=== PATIENT | female | born 1980 | race Caucasian/White ===

== ENCOUNTER 2017-11-06 01:30 | Emergency (ER) | payer SELFPAY ==
[2017-11-06 02:15] LABS: ABSOLUTE EOSINOPHILS # (AUTO) 0.1 10^3/uL (0.0-0.6); ABSOLUTE LYMPHOCYTES (AUTO) 2.2 10^3/uL (0.5-4.7); ABSOLUTE MONOCYTES (AUTO) 0.8 10^3/uL (0.1-1.4); ABSOLUTE NEUT (AUTO) 15.9 10^3/uL (1.7-8.2); BASOPHILS % (AUTO) 0.1 % (0-2); EOSINOPHILS % (AUTO) 0.4 % (0-6); HEMATOCRIT 35.6 % (36.0-47.0); LYMPHOCYTES % (AUTO) 11.6 % (13-45); MEAN CORPUSCULAR HEMOGLOBIN 30.4 pg (27.0-33.4); MEAN CORPUSCULAR HGB CONC 33.6 g/dL (32.0-36.0); MEAN CORPUSCULAR VOLUME 91 fl (80-97); MONOCYTES % (AUTO) 4.3 % (3-13); PLATELET COUNT 435 10^3/uL (150-450); RED BLOOD COUNT 3.94 10^6/uL (3.72-5.28); RED CELL DISTRIBUTION WIDTH 17.7 % (11.5-14.0); SEGMENTED NEUTROPHILS % (AUTO) 83.6 % (42-78); TOTAL CELLS COUNTED % (AUTO) 100 %; WHITE BLOOD COUNT 19.1 10^3/uL (4.0-10.5)
[2017-11-06 02:20] LABS: APPEARANCE,URINE CLOUDY; BILIRUBIN,URINE NEGATIVE (NEGATIVE); CALCIUM OXALATE CRYSTALS,URINE TOO NUMEROUS TO CNT /HPF; COLOR,URINE YELLOW; GLUCOSE, URINE NEGATIVE (NEGATIVE); KETONES,URINE NEGATIVE (NEGATIVE); LEUKOCYTE ESTERASE,URINE LARGE (NEGATIVE); NITRITE,URINE NEGATIVE (NEGATIVE); PROTEIN,URINE 30 mg/dL (NEGATIVE)
[2017-11-06] MEDS ORDERED: ONDANSETRON HCL INJ/PF 4 MG/2 ML SDV IV ONE (02:38)
[2017-11-06] MEDS ORDERED: NORMAL SALINE 1000 ML 1,000 ML IV ONE (02:38)
[2017-11-06] MEDS ORDERED: MORPHINE SULFATE 10 MG/ML INJ IV PRN (02:38)
[2017-11-06] MEDS ORDERED: KETOROLAC TROMETHAMINE INJ/PF 30 MG/1 ML SDV IV ONE (02:38)
[2017-11-06 02:54] LABS: ALANINE AMINOTRANSFERASE 21 U/L (9-52); ALBUMIN 3.3 g/dL (3.5-5.0); ALKALINE PHOSPHATASE 70 U/L (38-126); ANION GAP 10 (5-19); ASPARTATE AMINO TRANSFERASE 9 U/L (14-36); BILIRUBIN,DIRECT 0.2 mg/dL (0.0-0.4); BILIRUBIN,TOTAL 0.6 mg/dL (0.2-1.3); BLOOD UREA NITROGEN 12 mg/dL (7-20); CALCIUM 9.2 mg/dL (8.4-10.2); CARBON DIOXIDE 25 mmol/L (22-30); CHLORIDE 105 mmol/L (98-107); GLUCOSE 106 mg/dL (75-110); LIPASE 34.9 U/L (23-300); POTASSIUM 3.7 mmol/L (3.6-5.0); SODIUM 140.2 mmol/L (137-145); TOTAL PROTEIN 6.3 g/dL (6.3-8.2)
--- NOTE | 2017-11-06 03:10 | RADIOLOGY REPORT (SQ) ---
EXAM DESCRIPTION: CT ABDOMEN PELVIS WITHOUT IV CONTRAST COMPLETED DATE/TME: 11/06/2017 02:37 CLINICAL HISTORY: Right lower quadrant pain. COMPARISON: None Available. TECHNIQUE: CT of the abdomen and pelvis without IV contrast. Evaluation of the solid organs and vasculature is suboptimal due to lack of IV contrast. DLP: 436.76 mGy-cm FINDINGS: Lung Bases: The visualized lung bases are clear. Bones: No destructive bone lesions identified. Abdomen: Liver: The liver has normal size and density. Gallbladder: Prior cholecystectomy. Spleen, Pancreas, and Adrenal Glands: The spleen, pancreas, and adrenal glands are unremarkable. Kidneys: The kidneys have normal size and contour without evidence of hydronephrosis. No obstructing ureteral calculi. Vasculature: The aorta and IVC have normal caliber and position. Stomach: Large hiatal hernia. Other: No free intraperitoneal air. No free fluid or lymphadenopathy. Pelvis: Bladder: Urinary bladder is unremarkable. Bowel: No dilated loops of large or small bowel. Appendix: Normal appendix. Pelvis: There is a 3.3 x 3.6 cm probably benign right ovarian cyst. IUD present. IMPRESSION: 1. No acute inflammatory or obstructive process identified. 2. Large hiatal hernia. 3. There is a 3.6 cm probably benign right ovarian cyst. Follow-up ultrasound in 6-12 weeks recommended. This exam was performed according to our departmental dose-optimization program, which includes automated exposure control, adjustment of the mA and/or kV according to patient size and/or use of iterative reconstruction technique.
--- NOTE | 2017-11-06 03:54 | RADIOLOGY REPORT (SQ) ---
EXAM DESCRIPTION: US TRANSVAGINAL COMPLETED DATE/TME: 11/06/2017 03:12 CLINICAL HISTORY: 37 years, Female, pelvic pain. LMP 10/06/2017 COMPARISON: None. TECHNIQUE: Complete pelvic ultrasound with transvaginal imaging. FINDINGS: The uterus measures 8.6 x 6.0 x 5.2 cm. Endometrial thickness of 0.8 cm. IUD in appropriate location. No myometrial abnormalities. No free pelvic fluid. No large adnexal masses. The right ovary measures 4.7 x 4.8 x 3.7 cm. Simple appearing right ovarian cyst measuring 4.4 x 4.2 x 3.3 cm. The left ovary measures 3.1 x 2.9 x 2.6 cm. No abnormalities identified in the left ovary. Limited color and spectral Doppler imaging demonstrates flow within the ovaries bilaterally. IMPRESSION: 1. There is a 4.8 cm simple right ovarian cyst. This is almost certainly benign. No follow-up imaging recommended. 2011 [employer]- All Rights Reserved
[2017-11-06] MEDS ORDERED: CEFTRIAXONE INJ 1000 MG VIAL IV ONE (03:56)
--- NOTE | 2017-11-06 04:06 | ER Document Report ---
ED General - General Chief Complaint: Abdominal Pain Stated Complaint: FLANK PAIN Time Seen by Provider: 11/06/17 01:52 Notes: Patient is a 37-year-old female without chronic medical problems, prior surgical history of a cholecystectomy in the remote past who presents with 2 days of progressively worsening lower abdominal pain and right flank pain. The patient states that the pain started 2 days ago after having sexual intercourse. She states like something "popped" in her right lower abdomen and the pain has been ongoing since that time. She describes it as a severe, throbbing, stabbing pain to the lower abdomen and right flank. Nothing improves the pain. Touching the area worsens the pain. She denies any history of similar symptoms in the past. She notes that she has been nauseated but denies any vomiting. No fever or constitutional symptoms. She has not seen her general doctor regarding today's concerns. He does note intermittent vaginal bleeding as well as dysuria. TRAVEL OUTSIDE OF THE [place] IN LAST 30 DAYS: No - Related Data Allergies/Adverse Reactions: acetaminophen [From Vicodin] Allergy (Mild, Verified 11/06/17 01:32) hydrocodone [From Vicodin] Allergy (Mild, Verified 11/06/17 01:32) Past Medical History - General Information source: Patient - Social History Smoking Status: Current Every Day Smoker Frequency of alcohol use: Occasional Drug Abuse: None Lives with: Spouse/Significant other Family History: Reviewed & Not Pertinent Patient has suicidal ideation: No Patient has homicidal ideation: No Renal/ Medical History: Denies: Hx Peritoneal Dialysis Past Surgical History: Reports: Hx Cholecystectomy Review of Systems - Review of Systems Notes: Constitutional: Negative for fever. HENT: Negative for sore throat. Eyes: Negative for visual changes. Cardiovascular: Negative for chest pain. Respiratory: Negative for shortness of breath. Gastrointestinal: Positive for abdominal pain and flank pain. Genitourinary: Positive for intermittent vaginal bleeding Musculoskeletal: Negative for back pain. Skin: Negative for rash. Neurological: Negative for headaches, weakness or numbness. 10 point ROS negative except as marked above and in HPI. Physical Exam - Vital signs Vitals: Temp Pulse Resp BP Pulse Ox 98.5 F 100 18 122/73 99 11/06/17 01:35 11/06/17 01:35 11/06/17 01:35 11/06/17 01:35 11/06/17 01:35 Interpretation: Normal Notes: PHYSICAL EXAMINATION: GENERAL: Appears moderately uncomfortable but in no acute distress HEAD: Atraumatic, normocephalic. EYES: Pupils equal round and reactive to light, extraocular movements intact, sclera anicteric, conjunctiva are normal. ENT: nares patent, oropharynx clear without exudates. Mildly dry mucous membranes. NECK: Normal range of motion, supple without lymphadenopathy LUNGS: Breath sounds clear to auscultation bilaterally and equal. No wheezes rales or rhonchi. HEART: Regular rate and rhythm without murmurs ABDOMEN: Soft, tenderness to the right adnexa suprapubic regions. Right CVA tenderness. Normoactive bowel sounds. No guarding, no rebound. No masses appreciated. EXTREMITIES: Normal range of motion, no pitting or edema. No cyanosis. NEUROLOGICAL: No focal neurological deficits. Moves all extremities spontaneously and on command. PSYCH: Moderately anxious. SKIN: Warm, Dry, normal turgor, no rashes or lesions noted. Course - Re-evaluation Re-evalutation: 11/06/17 04:06 Patient presents with 2 days of progressively worsening right adnexal, suprapubic and right flank pain that has gotten progressively worse. The patient appears to be in obvious discomfort at time of my initial assessment. Initial vitals are within normal limits. Abdominal exam is notable for tenderness over the right adnexa, suprapubic region as well as bilateral CVA tenderness. No upper abdominal discomfort. Labs are notable for a leukocytosis , urinalysis consistent with cystitis versus pyelonephritis. Concern for possible nephrolithiasis given calcium oxalate crystals in urine as well as the degree of the patient's pain particularly to the right flank. CT scan of the abdomen pelvis without contrast shows no evidence of nephrolithiasis, normal appendix, but does show a large right ovarian cyst. Due to the patient's degree of pain there was a potential concern for ovarian torsion. The patient was therefore sent for transvaginal ultrasound and appropriate blood flow was visualized to both ovaries. Patient did have improvement of her discomfort here after administration of morphine and Toradol. She was able to tolerate oral intake without difficulty. Repeat abdominal examination shows ongoing mild discomfort to the right adnexa but is otherwise benign. At this point based on the workup today I suspect that the patient is having a large amount of discomfort related to the large right ovarian cyst as well as a urinary tract infection. I do not clinically suspect bowel perforation, mesenteric ischemia, acute appendicitis, pancreatitis, tubo-ovarian abscess, or pelvic inflammatory disease based on her imaging studies, history and exam. I have emphasized with the patient the importance of close outpatient follow-up, the need to return to the emergency department immediately if she develops fever, worsening pain, persistent vomiting, or has failure of her symptoms to resolve she states understanding of these discharge instructions as well as the need to return immediately if she is having deterioration of her condition. - Vital Signs Vital signs: Temp Pulse Resp BP Pulse Ox 98.5 F 100 18 122/73 99 11/06/17 01:35 11/06/17 01:35 11/06/17 01:35 11/06/17 01:35 11/06/17 01:35 - Laboratory Result Diagrams: 11/06/17 02:00 11/06/17 02:00 Laboratory results interpreted by me: 11/06/17 11/06/17 11/06/17 02:00 02:00 02:00 WBC 19.1 H Hct 35.6 L RDW 17.7 H Seg Neutrophils % 83.6 H Lymphocytes % 11.6 L Absolute Neutrophils 15.9 H AST 9 L Albumin 3.3 L Urine Protein 30 H Urine Blood MODERATE H Urine Urobilinogen 4.0 H Ur Leukocyte Esterase LARGE H - Diagnostic Test Radiology reviewed: Reports reviewed Discharge - Discharge Clinical Impression: Ovarian cyst, right, Lower abdominal pain, Right flank pain Urinary tract infection Qualifiers: Urinary tract infection type: site unspecified Hematuria presence: with hematuria Qualified Code(s): N39.0 - Urinary tract infection, site not specified ; R31.9 - Hematuria, unspecified; R31.9 - Hematuria, unspecified Condition: Good Disposition: HOME, SELF-CARE Additional Instructions: Your pain today is likely related to a large right ovarian cyst. This is seen on both the CT scan and ultrasound that was performed. You do not have any evidence of a kidney stone on the CT scan. Your urine shows findings consistent with a urinary tract infection. Please take all the antibiotics as directed even if your symptoms have improved. Please follow-up with your primary care doctor within the next 24-48 hours. Return to emergency room if you develop fever >101F, persistent vomiting, become lethargic, have severe pain in your sides, or any other symptoms that are concerning to you. For your pain: Take ibuprofen 600 mg and acetaminophen 1000 mg every 6 hours together as needed for pain. If this does not control your pain you may take 15 mg of oral morphine every 4 hours as needed. Please be very careful about using the oral morphine and only use this for severe pain. Prescriptions: Morphine Sulfate [Morphine Ir 15 mg Tablet] 15 mg PO Q6HP PRN #6 tablet PRN Reason: Cephalexin Monohydrate [Keflex 500 mg Capsule] 500 mg PO Q6H 7 Days capsule
[2017-11-06 05:14] VITALS: BP 135/75
== END 2017-11-06 05:14 | disposition home or self-care (01) ==
LOC: ER 01:30
DX: N39.0 Urinary tract infection, site not specified (principal); N83.201 Unspecified ovarian cyst, right side; R10.30 Lower abdominal pain, unspecified; R31.9 Hematuria, unspecified; R10.9 Unspecified abdominal pain; F17.200 Nicotine dependence, unspecified, uncomplicated; Z90.49 Acquired absence of other specified parts of digestive tract; Z88.6 Allergy status to analgesic agent
CPT/HCPCS: 99284; 96361; 96375; 96365; 36415; 87086; 83690; 85025; 81025; 87088; 80053; 81001; 87186; 76830; 93976; 74176; J1885; J0696; J2405; J7030

== ENCOUNTER 2018-01-25 16:03 | Emergency (ER) | payer SELFPAY ==
[2018-01-25] MEDS ORDERED: CLINDAMYCIN PHOSPHATE INJ 300 MG/2 ML SDV IM ONE (17:44)
--- NOTE | 2018-01-25 19:11 | ER Document Report ---
ED Skin Rash/Insect Bite/Abscs - General Chief Complaint: Insect Bite Stated Complaint: POSSIBLE BITE ON FOREARM Time Seen by Provider: 01/25/18 17:19 Mode of Arrival: Ambulatory Information source: Patient TRAVEL OUTSIDE OF THE [place] IN LAST 30 DAYS: No - HPI Patient complains to provider of: Skin rash/lesion, Spider bite Onset: Other - 2 days ago Onset/Duration: Worse Quality of pain: Burning, Sharp, Throbbing Severity: Moderate Pain Level: 3 Skin Character: Abscess, Tenderness Skin Temperature: Warm Quality of rash: Itchy, Painful Identify cause: No Exacerbated by: Denies Relieved by: Denies Similar symptoms previously: No Recently seen / treated by doctor: No - Related Data Allergies/Adverse Reactions: acetaminophen [From Vicodin] Allergy (Mild, Verified 11/06/17 01:32) hydrocodone [From Vicodin] Allergy (Mild, Verified 11/06/17 01:32) Past Medical History - General Information source: Patient - Social History Smoking Status: Current Every Day Smoker Cigarette use (# per day): Yes Chew tobacco use (# tins/day): No Smoking Education Provided: Yes Frequency of alcohol use: Occasional Drug Abuse: None Family History: Reviewed & Not Pertinent Patient has suicidal ideation: No Patient has homicidal ideation: No Renal/ Medical History: Denies: Hx Peritoneal Dialysis Past Surgical History: Reports: Hx Abdominal Surgery - hernia, Hx Cholecystectomy Review of Systems - Review of Systems Constitutional: No symptoms reported EENT: No symptoms reported Cardiovascular: No symptoms reported Respiratory: No symptoms reported Gastrointestinal: No symptoms reported Genitourinary: No symptoms reported Female Genitourinary: No symptoms reported Musculoskeletal: No symptoms reported Skin: See HPI, Other - Cellulitis Hematologic/Lymphatic: No symptoms reported Neurological/Psychological: No symptoms reported -: Yes All other systems reviewed and negative Physical Exam - Vital signs Vitals: Temp Pulse Resp BP Pulse Ox 98.0 F 88 16 140/89 H 98 01/25/18 16:09 01/25/18 16:09 01/25/18 16:09 01/25/18 16:09 01/25/18 16:09 Interpretation: Hypertensive - Notes Notes: 1 PHYSICAL EXAMINATION: GENERAL: Well-appearing, well-nourished and in no acute distress. HEAD: Atraumatic, normocephalic. EYES: Pupils equal round and reactive to light, extraocular movements intact, conjunctiva are normal. ENT: Nares patent, oropharynx clear without exudates. Moist mucous membranes. NECK: Normal range of motion, supple without lymphadenopathy LUNGS: Breath sounds clear to auscultation bilaterally and equal. No wheezes rales or rhonchi. HEART: Regular rate and rhythm without murmurs ABDOMEN: Soft, nontender, nondistended abdomen. No guarding, no rebound. No masses appreciated. Female : deferred Musculoskeletal: Patient has a area on her right arm that encompasses her and q. and below and above. The original site of the events is just below the antecubital on the forearm. It is an area of 13 cm x 13 cm. It is moderately warm there is no fluctuance there is no induration at this time it is just warm hot skin that really appears infected. The originating site is approximately 3- 4 mL's wide by about 3-4 mL as long. It is blackish in nature and does appear somewhat be necrotic in that area. There is no drainage from the site at this time. Patient has full use of her arm although it is uncomfortable she has good vascular exam with good cap refill in the nailbeds of the fingers of the right hand. She also has a good brachial pulse. At this time there is no area sufficient enough to call an abscess or for an I&D. NEUROLOGICAL: Normal speech, normal gait. Normal sensory, motor exams PSYCH: Normal mood, normal affect. SKIN: Warm, Dry, normal turgor, no rashes or lesions noted. Course - Re-evaluation Re-evalutation: 01/25/18 21:17 I informed patient that was putting her on 2 antibiotics and Diflucan. I did give her some pain medication because of the discomfort. At this point time I have informed her she is to use warm moist compresses. I have informed her to come back in 48 hours and let us take a look at it. Patient seems to be in agreement with all this. We are uncertain as to the cause of this but it may have been a spider. - Vital Signs Vital signs: Temp Pulse Resp BP Pulse Ox 97.7 F 95 16 145/77 H 99 01/25/18 19:51 01/25/18 19:51 01/25/18 19:51 01/25/18 19:51 11/13/18 19:51 Discharge - Discharge Clinical Impression: Cellulitis Qualifiers: Site of cellulitis: extremity Site of cellulitis of extremity: upper extremity Laterality: right Qualified Code(s): L03.113 - Cellulitis of right upper limb Condition: Good Disposition: HOME, SELF-CARE Instructions: Cellulitis ([facility]) Additional Instructions: As we discussed go home use warm moist compresses 2-3 times a day. This is a rag just as warm as you can stand up from the sink and not in a microwave or in a boiling pot. Take all the antibiotics as directed. I am also writing you for a Diflucan tablet this. You from getting a yeast infection. I am placing you on 2 antibiotics both Bactrim which is a sulfa drugs and cephalexin which is in a different class of drug. Both her antibiotics and because her strong antibiotics women sometimes get a yeast infection that is why we given you the Diflucan pill. Should you have any concerns that this is expanding or not healing appropriately return to ER for a recheck. I would like you to come back in about 48 hours just to be on the safe side to make sure that it is responding to the treatments as we have just expected it to. And again should it be worse come back sooner. Prescriptions: Cephalexin Monohydrate [Keflex 500 mg Capsule] 500 mg PO Q6H 7 Days #28 capsule Fluconazole [Diflucan] 150 mg PO ONCE PRN #1 tablet PRN Reason: Ibuprofen [Ibu] 800 mg PO TID #30 tablet Sulfamethoxazole/Trimethoprim [Bactrim Ds Tablet] 1 each PO BID 10 Days #20 tablet Forms: Elevated Blood Pressure, Smoking Cessation Education Referrals: [facility] [NO LOCAL MD] - Follow up as needed
[2018-01-25 19:52] VITALS: BP 145/77
== END 2018-01-25 19:52 | disposition home or self-care (01) ==
LOC: ER 16:03
DX: L03.113 Cellulitis of right upper limb (principal); F17.210 Nicotine dependence, cigarettes, uncomplicated; Z88.6 Allergy status to analgesic agent; Z88.5 Allergy status to narcotic agent
CPT/HCPCS: 99283; J3490

== ENCOUNTER 2018-01-26 23:17 | Emergency (ER) | payer SELFPAY ==
[2018-01-27] MEDS ORDERED: LIDOCAINE 1% INJ-PF (10 MG/ML) 30 ML SDV INJ ONE ×2 (00:50→00:57)
[2018-01-27] MEDS ORDERED: OXYCODONE HCL IR 5 MG TABLET PO ONE ×2 (00:51→01:59)
--- NOTE | 2018-01-27 00:51 | ER Document Report ---
Doctor's Note Notes: I personally and independently obtained patient history and examined the patient in conjunction with the APC and agree with the assessment, treatment plan and disposition of the patient as recorded by the APC, and have reviewed the APC's note. HISTORY OF PRESENT ILLNESS: Patient is a 37-year-old female that presents to the emergency department for chief complaint of right arm swelling, and redness, patient was seen in the emergency department yesterday, advised if her symptoms worsen to return to the emergency department, she was given prescriptions, but did not have them filled for antibiotics. ROS: Constitutional: Negative for fever. Cardiovascular: Negative for chest pain. Respiratory: Negative for shortness of breath. Gastrointestinal: Negative for vomiting or abdominal pain Musculoskeletal: Negative for arm, leg or back pain Skin: Positive for abscess Neurological: Negative for weakness or numbness. Other than noted above, the 12 point review of systems was reviewed with the patient and were negative, all pertinent findings are included in the HPI. PHYSICAL EXAMINATION: Vital signs reviewed, nursing noted reviewed. GENERAL: Well-appearing, well-nourished and appears uncomfortable HEAD: Atraumatic, normocephalic. EYES: Eyes appear normal, conjunctiva are normal. ENT: nares patent, oropharynx clear without exudates. Moist mucous membranes. NECK: Normal range of motion, supple without lymphadenopathy LUNGS: Breath sounds clear to auscultation bilaterally and equal. No wheezes rales or rhonchi. HEART: Regular rate and rhythm without murmurs ABDOMEN: Soft, nontender, normoactive bowel sounds. No rebound, guarding, or rigidity. No masses appreciated. EXTREMITIES: Right arm, is erythematous, there is an eschar just distal to the elbow on the volar surface, with surrounding erythema extending medially and laterally and distally, no lymphadenopathy in the axilla, the rest the patient' s extremity exam is unremarkable NEUROLOGICAL: No focal neurological deficits. Moves all extremities spontaneously Motor and sensory grossly intact on exam. PSYCH: Normal mood, normal affect. SKIN: Warm, Dry, normal turgor, no rashes or lesions noted on exposed MEDICAL DECISION MAKING: Patient seen and examined, agree with APC plan, we did perform bedside ultrasound, demonstrated a pocket of fluid, with tunneling, which I felt would need incision and drainage, which was performed, with good output, patient tolerated well, packing placed, she is given return precautions, to have a wound check, in 2-3 days, patient was agreeable. Please review detail APC documentation. *Note is created using voice recognition software and may contain spelling, syntax or grammatical errors.
[2018-01-27] MEDS ORDERED: CEFTRIAXONE INJ 1000 MG VIAL IM ONE (00:57)
[2018-01-27] MEDS ORDERED: SULFAMETHOXAZOLE/TRIMETHOPRIM 800-160 MG TABLET PO ONE (00:57)
--- NOTE | 2018-01-27 00:57 | ER Document Report ---
Addendum entered and electronically signed by CRISTHIAN RAMÍREZ PA-C 01/27/18 01:34 : Discharge - Discharge Clinical Impression: Cellulitis and abscess of upper arm and forearm Condition: Stable Disposition: HOME, SELF-CARE Instructions: Abscess ([facility]), Cephalexin ([facility]), Post Incision and Drainage, Trimethoprim-Sulfa ([facility]) Additional Instructions: Fill your Keflex and Bactrim tomorrow morning* Do not shower or bathe for 24 hours. After 24 hours she may shower but no submersion of the wound under water. Keep the original dressing on the wound for 24 hours unless the drainage soaks through. Change the dressing daily thereafter and use a small amount of triple antibiotic ointment over the open wound. Return to the ED and/or your PCM in 2-3 days for recheck and continue direction for wound packing. Monitor for any signs of worsening pain or redness , streaks, and/or fever. Return to the ED if noticing any of the above symptoms or as needed. Take medications as directed. Prescriptions: Morphine Sulfate [Morphine Ir 15 Mg Tablet] 15 mg PO TID #12 tablet Forms: Elevated Blood Pressure Referrals: MARICRUZ MARTINEZ MD [ACTIVE STAFF] - Follow up as needed Original Note: ED General - General TRAVEL OUTSIDE OF THE [place] IN LAST 30 DAYS: No <CRISTHIAN RAMÍREZ - Last Filed: 01/27/18 01:34> <MISAEL OLSEN - Last Filed: 01/27/18 04:06> - General Chief Complaint: Abscess Stated Complaint: POSSIBLE SPIDER BITE Time Seen by Provider: 01/27/18 00:43 - HPI Notes: Patient is a 37-year-old female with a history of asthma who presents to the ED complaining of worsening swelling, pain, and redness to her right anterior forearm status post possible insect bite a couple days ago. Patient states that she was evaluated yesterday and was sent home on Keflex and Bactrim, but could not fill the medications due to cost. Patient states that she did not go to [facility] for the medications which is why it was more expensive. 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 Patient states that the area of skin was marked and the redness has surpassed the border. She is otherwise still eating and drinking without difficulty. She is urinating normally and having normal bowel movements. Denies any headache, fever, neck pain, URI, sore throat, chest pain, palpitations, syncope, cough, shortness of breath, wheeze, dyspnea, abdominal pain, nausea/vomiting/diarrhea, urinary retention, dysuria, hematuria. (CRISTHIAN RAMÍREZ) - Related Data Allergies/Adverse Reactions: acetaminophen [From Vicodin] Allergy (Mild, Verified 11/06/17 01:32) hydrocodone [From Vicodin] Allergy (Mild, Verified 11/06/17 01:32) Past Medical History - Social History Smoking Status: Unknown if Ever Smoked Family History: Reviewed & Not Pertinent Renal/ Medical History: Denies: Hx Peritoneal Dialysis Past Surgical History: Reports: Hx Abdominal Surgery - hernia, Hx Cholecystectomy <CRISTHIAN RAMÍREZ - Last Filed: 01/27/18 01:34> Review of Systems - Review of Systems -: Yes All other systems reviewed and negative <CRISTHIAN RAMÍREZ - Last Filed: 01/27/18 01:34> Physical Exam <CRISTHIAN RAMÍREZ - Last Filed: 01/27/18 01:34> <MISAEL OLSEN - Last Filed: 01/27/18 04:06> - Vital signs Vitals: Temp Pulse Resp BP Pulse Ox 98.5 F 101 H 18 144/86 H 99 01/26/18 23:17 01/26/18 23:17 01/26/18 23:17 01/26/18 23:17 01/26/18 23:17 - Notes Notes: PHYSICAL EXAMINATION: GENERAL: Well-appearing, well-nourished and in no acute distress. LUNGS: Breath sounds clear to auscultation bilaterally and equal. No wheezes rales or rhonchi. HEART: Regular rate and rhythm without murmurs, rubs, gallops. Musculoskeletal: Rt arm: FROM to passive/active. Strength 5+/5. N/v intact distal. Extremities: No cyanosis, clubbing, or edema b/l. Peripheral pulses 2+. Capillary refill less than 3 seconds. NEUROLOGICAL: Normal speech, normal gait. Normal sensory, motor exams PSYCH: Normal mood, normal affect. SKIN: Rt forearm: there is a large area surpassing the previously marked border of erythema and warmth. There is mild induration and fluctuance noted directly beneath the scabbed/mildly necrotic area of the forearm. + tenderness associated. + small fluid pocket noted on US performed by Dr. Olsen. (CRISTHIAN RAMÍREZ) Course <CRISTHIAN RAMÍREZ - Last Filed: 01/27/18 01:34> <MISAEL OLSEN - Last Filed: 01/27/18 04:06> - Re-evaluation Re-evalutation: 01/27/18 00:55 US shows abscess although small. We will perform I&D. Rocephin 1g IM and bactrim DS PO will be given. We will hold off on further labs at this time as it appears to be abscess with cellulitis vs associated lymphangitis. 01/27/18 01:30 Patient is an afebrile, well-hydrated, 37-year-old female who presents to the ED with an abscess and cellulitis to her right anterior forearm. Vitals are acceptable without any significant tachycardia, tachypnea, or hypoxia. PE is otherwise unremarkable. Incision and drainage was performed successfully without any complications. Wound culture was obtained. Packing was placed and wound dressing applied. Wound instructions reviewed. First dose of Bactrim given p.o. today as well as Rocephin 1 g IM. No further labs or imaging warranted at this time. Patient is aware her condition can change/worsen and if so she needs to return immediately. I will send her home with a prescription for some pain medicine. She already has prescriptions for Bactrim and Keflex that she is going to fill tomorrow. I did stress the importance of filling her prescription tomorrow. Conservative measures otherwise for symptoms. Recheck with your PCM and/or return to the emergency department in 2- 3 days for wound check and further evaluation. Consider consult with the surgeon as well. Return to the ED with any worsening/concerning symptoms otherwise as reviewed in discharge. Patient is in agreement. (CRISTHIAN RAMÍREZ) - Vital Signs Vital signs: Temp Pulse Resp BP Pulse Ox 98.7 F 89 20 136/78 H 96 01/27/18 02:31 01/27/18 02:31 01/27/18 02:31 01/27/18 02:31 01/27/18 02:31 Procedures - Incision and Drainage Right Arm Time completed: 01:25 Type: Simple Anesthetic type: 1% Lidocaine mL's of anesthetic: 5 Blade size: 11 I&D procedure: Iodoform packing placed, Other - chlorhexadine/saline Incision Method: Incision made by scalpel Amount/type of drainage: abundant purulent <CRISTHIAN RAMÍREZ - Last Filed: 01/27/18 01:34> - Incision and Drainage Right Arm Type: Complex <MISAEL OLSEN - Last Filed: 01/27/18 04:06> Discharge <CRISTHIAN RAMÍREZ - Last Filed: 01/27/18 01:34> <MISAEL OLSEN - Last Filed: 01/27/18 04:06> - Discharge Clinical Impression: Cellulitis and abscess of upper arm and forearm Condition: Stable Disposition: HOME, SELF-CARE Instructions: Abscess ([facility]), Cephalexin ([facility]), Post Incision and Drainage, Trimethoprim-Sulfa ([facility]) Additional Instructions: Fill your Keflex and Bactrim tomorrow morning* Do not shower or bathe for 24 hours. After 24 hours she may shower but no submersion of the wound under water. Keep the original dressing on the wound for 24 hours unless the drainage soaks through. Change the dressing daily thereafter and use a small amount of triple antibiotic ointment over the open wound. Return to the ED and/or your PCM in 2-3 days for recheck and continue direction for wound packing. Monitor for any signs of worsening pain or redness , streaks, and/or fever. Return to the ED if noticing any of the above symptoms or as needed. Take medications as directed. Prescriptions: Morphine Sulfate [Morphine Ir 15 Mg Tablet] 15 mg PO TID #12 tablet Forms: Elevated Blood Pressure Referrals: MARICRUZ MARTINEZ MD [ACTIVE STAFF] - Follow up as needed
[2018-01-27 02:32] VITALS: BP 136/78
== END 2018-01-27 02:34 | disposition home or self-care (01) ==
LOC: ER 23:17
DX: L02.413 Cutaneous abscess of right upper limb (principal); L03.113 Cellulitis of right upper limb; T36.1X6A Underdosing of cephalosporins and other beta-lactam antibiotics, initial encounter; T37.0X6A Underdosing of sulfonamides, initial encounter; Z91.120 Patient's intentional underdosing of medication regimen due to financial hardship; Z91.14 Patient's other noncompliance with medication regimen; Z88.6 Allergy status to analgesic agent; Z88.5 Allergy status to narcotic agent
CPT/HCPCS: 99283; 96372; 87070; 87205; 87075; 87077; 87186; 10060; J3490; J0696

== ENCOUNTER 2018-07-29 15:24 | Emergency (ER) | payer OTHER ==
[2018-07-29] MEDS ORDERED: IBUPROFEN 800 MG TABLET PO ONE (15:46)
[2018-07-29] MEDS ORDERED: CLINDAMYCIN HCL 150 MG CAPSULE PO ONE (15:46)
--- NOTE | 2018-07-29 15:46 | ER Document Report ---
ED Skin Rash/Insect Bite/Abscs - General Chief Complaint: Skin Problem Stated Complaint: POSSIBLE BUG BITE Time Seen by Provider: 07/29/18 15:35 Notes: 37-year-old female who is an inmate was sent for evaluation of cellulitis/insect bite of her wrist. She denies any fever or chills. The patient has been on Bactrim and minocycline. They felt the redness was getting worse and sent the patient in the patient stated it really does not bother her that much. She denies anything else she has had abscesses in the past denies chest pain or short of breath denies abdominal pain. TRAVEL OUTSIDE OF THE [place] IN LAST 30 DAYS: No - Related Data Allergies/Adverse Reactions: acetaminophen [From Vicodin] Allergy (Mild, Verified 07/29/18 15:36) hydrocodone [From Vicodin] Allergy (Mild, Verified 07/29/18 15:36) Past Medical History - Social History Smoking Status: Former Smoker Chew tobacco use (# tins/day): No Frequency of alcohol use: None Drug Abuse: None Family History: Reviewed & Not Pertinent Patient has suicidal ideation: No Patient has homicidal ideation: No Renal/ Medical History: Denies: Hx Peritoneal Dialysis Past Surgical History: Reports: Hx Abdominal Surgery - hernia, Hx Cholecystectomy Review of Systems - Review of Systems Constitutional: denies: Chills, Fever Skin: Other - Insect bite/area on the dorsum of the left wrist with some mild redness around it no greater than 2-1/2 cm in diameter -: Yes All other systems reviewed and negative Physical Exam - Vital signs Vitals: Temp Pulse Resp BP Pulse Ox 97.4 F 76 18 150/87 H 96 07/29/18 15:36 07/29/18 15:36 07/29/18 15:36 07/29/18 15:36 07/29/18 15:36 - Notes Notes: GENERAL_APPEARANCE: well_nourished, alert, cooperative, no_acute_distress, no_obvious_discomfort. VITALS: reviewed, see vital signs table. HEAD: no_swelling\tenderness on the head. EYES: conjunctiva_clear. NOSE: no_nasal_discharge. MOUTH: (-)decreased moisture. EXTREMITIES: Very small area about the size of a dime on the dorsum of the left wrist. There is some redness that extends out about 2-1/2 cm total diameter. There is no fluctuance there is a little bit of induration little less than the size of a dime. SKIN: warm, dry, good_color, no_rash. MENTAL_STATUS: speech_clear, oriented_X_3, normal_affect, responds_appropriately to questions. Course - Re-evaluation Re-evalutation: 07/29/18 15:43 Patient was sent for an area of cellulitis. She is been on Bactrim and minocycline. I tried to squeeze the area and just a little bit a lymph came out no pus. I do not think it needs I&D is pretty small effusion no fluctuance. We will place the patient on clindamycin and Bactroban. We will stop the Bactrim and minocycline. Currently this does not look very worrisome and I do not think he needs any IV antibiotics. The patient will be discharged back to assisted. - Vital Signs Vital signs: Temp Pulse Resp BP Pulse Ox 97.4 F 76 18 150/87 H 96 07/29/18 15:36 07/29/18 15:36 07/29/18 15:36 07/29/18 15:36 07/29/18 15:36 Discharge - Discharge Clinical Impression: Cellulitis of extremity Qualifiers: Site of cellulitis of extremity: upper extremity Laterality: left Qualified Code(s): L03.114 - Cellulitis of left upper limb Disposition: HOME, SELF-CARE Instructions: Cellulitis ([facility]) Additional Instructions: Stop the Bactrim and minocycline. Start clindamycin as prescribed and Bactroban cream. Warm compresses. Prescriptions: Clindamycin HCl [Cleocin 300 mg Capsule] 300 mg PO Q6 #30 cap Mupirocin Calcium [Bactroban 2% Cream 15 gm] 1 applic TP BID #1 tube
[2018-07-29 16:11] VITALS: BP 123/70
== END 2018-07-29 16:13 ==
LOC: ER 15:24
DX: L03.114 Cellulitis of left upper limb (principal); Z90.49 Acquired absence of other specified parts of digestive tract; Z88.6 Allergy status to analgesic agent
CPT/HCPCS: 99283

== ENCOUNTER → 2018-09-08 | Outpatient (CLI) | payer OTHER ==
--- NOTE | 2018-09-08 17:24 | RADIOLOGY REPORT (SQ) ---
EXAM DESCRIPTION: U/S NON-OB PELVIS W/O DOP COMPLETED DATE/TIME: 09/08/2018 4:33 pm REASON FOR STUDY: N83.201 UNSPECIFIED OVARIAN CYST, RIGHT KANWAL N83.201 UNSPECIFIED OVARIAN CYST, RIG HT SIDE COMPARISON: 11/06/2017 TECHNIQUE: Dynamic and static grayscale images acquired of the pelvis via transabdominal approach an d recorded on PACS. Additional selected color Doppler and spectral images recorded. LIMITATIONS: The examination is limited due to overlying bowel gas. FINDINGS: UTERUS: Contour normal. No mass. ENDOMETRIAL STRIPE: IUD is identified within the endometrial cavity. CERVIX: No nabothian cysts. RIGHT OVARY AND DOPPLER: The right ovary is not visualized due to overlying bowel gas. LEFT OVARY AND DOPPLER: Normal size. No worrisome masses. Normal arterial vascular flow without evide nce for torsion. FREE FLUID: None noted. OTHER: No other significant finding. MEASUREMENTS: UTERUS: 7.9 x 5.9 x 4.7 cm ENDOMETRIAL STRIPE: See above RIGHT OVARY: Not visualized LEFT OVARY: 2.0 x 3.4 x 2.2 cm IMPRESSION: 1. The right ovary is not visualized due to overlying bowel gas. 2. IUD within the endometrial cavity. TECHNICAL DOCUMENTATION: JOB ID: [id number] [employer]- All Rights Reserved Rev-07/30 Reading location - IP/workstation name: [email or web address]
== END ==
LOC: RAD 15:33
PROVIDERS: ATTEND Family Medicine
DX: N83.201 Unspecified ovarian cyst, right side (principal)
CPT/HCPCS: 76856

== ENCOUNTER → 2018-09-26 | Outpatient (CLI) | payer OTHER ==
--- NOTE | 2018-09-26 16:19 | RADIOLOGY REPORT (SQ) ---
EXAM DESCRIPTION: U/S NON-OB PELVIS W/O DOP COMPLETED DATE/TIME: 09/26/2018 2:26 pm REASON FOR STUDY: OVARIAN CYST COMPARISON: 09/08/2018 TECHNIQUE: Dynamic and static grayscale images acquired of the pelvis via transabdominal approach an d recorded on PACS. Additional selected color Doppler and spectral images recorded. LIMITATIONS: None. FINDINGS: UTERUS: Contour normal. No mass. ENDOMETRIAL STRIPE: No focal or generalized thickening. IUD present. . CERVIX: No nabothian cysts. RIGHT OVARY AND DOPPLER: Ovary not visualized. LEFT OVARY AND DOPPLER: Normal size. No worrisome masses. Normal arterial vascular flow without evide nce for torsion. FREE FLUID: None noted. OTHER: No other significant finding. MEASUREMENTS: UTERUS: 7.9 x 5 x 4 cm cm ENDOMETRIAL STRIPE: 7 mm RIGHT OVARY: Not visualized. LEFT OVARY: 2.1 x 2.2 x 1.7 cm IMPRESSION: Nonvisualized right ovary. IUD present. TECHNICAL DOCUMENTATION: JOB ID: [id number] [place]-72 2010 [employer]- All Rights Reserved Rev-07/30 Reading location - IP/workstation name: [email or web address]
== END ==
LOC: RAD 13:55
PROVIDERS: ATTEND Family Medicine
DX: N83.209 Unspecified ovarian cyst, unspecified side (principal)
CPT/HCPCS: 76856

== ENCOUNTER → 2018-10-05 | Outpatient (CLI) | payer OTHER ==
--- NOTE | 2018-10-05 16:53 | RADIOLOGY REPORT (SQ) ---
EXAM DESCRIPTION: U/S NON-OB PELVIS TV W/O DOP COMPLETED DATE/TIME: 10/05/2018 4:40 pm REASON FOR STUDY: N83.201 UNSPECIFIED OVARIAN CYST, RIGHT SIDE N83.201 UNSPECIFIED OVARIAN CYST, RI GHT SIDE COMPARISON: 09/26/2018. TECHNIQUE: Dynamic and static grayscale images acquired of the pelvis via transvaginal approach and recorded on PACS. Additional selected color Doppler and spectral images recorded. LIMITATIONS: None. FINDINGS: UTERUS: Contour normal. No mass. ENDOMETRIAL STRIPE: IUD present. No focal or generalized thickening. No masses. CERVIX: No nabothian cysts. RIGHT OVARY AND DOPPLER: Normal size. No worrisome masses. Normal arterial vascular flow without evid ence for torsion. LEFT OVARY AND DOPPLER: Normal size. No worrisome masses. Normal arterial vascular flow without evide nce for torsion. FREE FLUID: None noted. OTHER: No other significant finding. MEASUREMENTS: UTERUS: 4.5 x 5.6 x 8.9 cm. ENDOMETRIAL STRIPE: 5.5 mm. RIGHT OVARY: 1.3 x 1.5 x 1.6 cm. LEFT OVARY: 1.6 x 2.2 x 2.6 cm. IMPRESSION: NORMAL TRANSVAGINAL PELVIC ULTRASOUND. TECHNICAL DOCUMENTATION: JOB ID: [id number] [employer]- All Rights Reserved Rev Reading location - IP/workstation name: [email or web address]
== END ==
LOC: RAD 16:00
PROVIDERS: ATTEND Family Medicine
DX: N83.201 Unspecified ovarian cyst, right side (principal)
CPT/HCPCS: 76830

== ENCOUNTER 2020-01-03 15:00 | Emergency (ER) | payer SELFPAY ==
--- NOTE | 2020-01-03 15:40 | ER Document Report ---
ED Medical Screen (RME) - General Chief Complaint: Lower Abdominal Pain Stated Complaint: LOW ABDOMINAL/PELVIC PAIN Time Seen by Provider: 01/03/20 15:28 TRAVEL OUTSIDE OF THE [place] IN LAST 30 DAYS: No - HPI Notes: 01/03/20 15:38 39-year-old female to the emergency department with complaints of pelvic pain that radiates into her right upper quadrant states been going on for about a month but been getting significantly worse. She states that her last menstrual period was December 06 and she has had several negative tests since her pain started. She states that she has had a little bit of some discharge and odor. She states that she also feels this "vaginal pulling". She states that she has a history of ovarian cyst but she is not sure that this is exactly what is going on. She states that she does have a newer partner and she is concerned for STD. Denies any nausea or vomiting. She denies any chest pain or shortness of breath. Denies any diarrhea. Denies any urinary complaints. She has had a cholecystectomy as well as a hernia repair. I performed a brief medical screening exam on the patient determined that the patient needs further evaluation and management by main side provider. I have placed initial orders to help expedite care. - Related Data Allergies/Adverse Reactions: acetaminophen [From Vicodin] Allergy (Mild, Verified 07/29/18 15:36) hydrocodone [From Vicodin] Allergy (Mild, Verified 07/29/18 15:36) Past Medical History Renal/ Medical History: Denies: Hx Peritoneal Dialysis Past Surgical History: Reports: Hx Abdominal Surgery - hernia, Hx Cholecystectomy
[2020-01-03 16:03] LABS: ABSOLUTE BASOPHILS # (AUTO) 0.1 10^3/uL (0.0-0.2); ABSOLUTE EOSINOPHILS # (AUTO) 0.2 10^3/uL (0.0-0.6); ABSOLUTE LYMPHOCYTES (AUTO) 2.1 10^3/uL (0.5-4.7); ABSOLUTE MONOCYTES (AUTO) 0.6 10^3/uL (0.1-1.4); ABSOLUTE NEUT (AUTO) 6.2 10^3/uL (1.7-8.2); BASOPHILS % (AUTO) 0.6 % (0-2); EOSINOPHILS % (AUTO) 1.9 % (0-6); HEMATOCRIT 39.5 % (36.0-47.0); HEMOGLOBIN 13.4 g/dL (12.0-15.5); LYMPHOCYTES % (AUTO) 23.3 % (13-45); MEAN CORPUSCULAR HEMOGLOBIN 32.4 pg (27.0-33.4); MEAN CORPUSCULAR HGB CONC 33.9 g/dL (32.0-36.0); MEAN CORPUSCULAR VOLUME 96 fl (80-97); MONOCYTES % (AUTO) 6.5 % (3-13); PLATELET COUNT 308 10^3/uL (150-450); RED BLOOD COUNT 4.14 10^6/uL (3.72-5.28); RED CELL DISTRIBUTION WIDTH 13.3 % (11.5-14.0); SEGMENTED NEUTROPHILS % (AUTO) 67.7 % (42-78); TOTAL CELLS COUNTED % (AUTO) 100 %; WHITE BLOOD COUNT 9.2 10^3/uL (4.0-10.5)
[2020-01-03 16:23] LABS: ALKALINE PHOSPHATASE 100 U/L (38-126); ANION GAP 6 (5-19); ASPARTATE AMINO TRANSFERASE 26 U/L (14-36); BILIRUBIN,DIRECT 0.3 mg/dL (0.0-0.4); BILIRUBIN,TOTAL 0.4 mg/dL (0.2-1.3); BLOOD UREA NITROGEN 16 mg/dL (7-20); CALCIUM 9.1 mg/dL (8.4-10.2); CARBON DIOXIDE 28 mmol/L (22-30); CHLORIDE 104 mmol/L (98-107); GLUCOSE 94 mg/dL (75-110)
--- NOTE | 2020-01-03 18:41 | ER Document Report ---
ED General - General Chief Complaint: Pelvic Pain Stated Complaint: LOW ABDOMINAL/PELVIC PAIN Time Seen by Provider: 01/03/20 15:28 Mode of Arrival: Ambulatory Information source: Patient Notes: Patient is a 39-year-old female coming in today with some pelvic discomfort and odor. Has a new partner. Concerned about possible STD. 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 No fevers or chills. No urinary symptoms. No nausea vomiting or diarrhea. TRAVEL OUTSIDE OF THE [place] IN LAST 30 DAYS: No - Related Data Allergies/Adverse Reactions: acetaminophen [From Vicodin] Allergy (Mild, Verified 07/29/18 15:36) hydrocodone [From Vicodin] Allergy (Mild, Verified 07/29/18 15:36) Past Medical History - Social History Smoking Status: Unknown if Ever Smoked Family History: Reviewed & Not Pertinent Patient has homicidal ideation: No Renal/ Medical History: Denies: Hx Peritoneal Dialysis Past Surgical History: Reports: Hx Abdominal Surgery - hernia, Hx Cholecystectomy Review of Systems - Review of Systems Notes: Constitutional: No fevers. No chills. EENT: No eye redness. No eye pain. No ear pain. No sore throat. Cardiovascular: No chest pain. No palpitations. Respiratory: No cough. No shortness of breath. No respiratory distress. Gastrointestinal: No abdominal pain. No nausea, vomiting, or diarrhea. Genitourinary: Positive for vaginal odor and discharge Musculoskeletal: Atraumatic. No swelling. No deformities. Skin: No rash or lesions. Lymphatic: No swollen lymph nodes. Neurologic: No headache. No syncope. Psychiatric: No suicidal or homicidal ideation. Physical Exam - Notes Notes: General: Well-developed, well-nourished. In no acute distress. Non-toxic appear ing. Cardiac: Well-perfused. Regular rate and rhythm. No murmurs, rubs, or gallops. Pulmonary: No respiratory distress. No cyanosis. Bilateral lung lujan are clear to auscultation. Abdominal: Non-distended. Non-rigid. Bowels sounds are present in all four quadrants. No guarding or rebound. HEENT: Head is atraumatic. Conjunctivae not reddened. No tearing. PERRL. EOMI. Orbits atraumatic. No periorbital swelling or erythema. Oropharynx is without erythema, swelling, or exudates. Neck: Supple. No adenopathy. No meningismus. Dermatologic: Warm with good turgor. No rash. Atraumatic. Chest: Atraumatic. No chest wall tenderness to palpation. Musculoskeletal: Moves all extremities well. No range of motion deficits. no muscular or joint tenderness. No paraspinal muscle tenderness. no midline spinal tenderness or step-off. Genitourinary: Chaperoned by female PCT. External genitalia normal. Speculum exam reveals moderate amount of opaque colored mildly malodorous vaginal discharge. Cervix is non-erythematous. No cervical motion tenderness. Neurologic: No gross neurologic deficits. Psychiatric: Normal mood. Course - Re-evaluation Re-evalutation: 01/03/20 18:41 Exam suspicious for BV. Will await wet mount. Low threshold to treat empirically for trichomoniasis, gonorrhea, and chlamydia. Still waiting for results of UA 01/03/20 19:05 Wet mount is consistent with BV. Her pelvic exam really was not significant otherwise. She will await the results of the gonorrhea and chlamydia test. - Laboratory Result Diagrams: 01/03/20 15:50 01/03/20 15:50 Laboratory results interpreted by me: 01/03/20 18:12 Urine Ketones TRACE H Discharge - Discharge Clinical Impression: Bacterial vaginosis Condition: Good Disposition: HOME, SELF-CARE Instructions: Vaginosis, Bacterial ([facility]) Additional Instructions: Avoid further sexual contact until you find the results of your gonorrhea and Chlamydia test. Take Flagyl twice a day for the next 7 days. Avoid alcohol when taking this medication. Prescriptions: Metronidazole [Flagyl 500 mg Tablet] 500 mg PO BID 7 Days #14 tablet Referrals: ASHLY MCCORD MD [ACTIVE PROVISIONAL STAFF] - Follow up as needed
[2020-01-03 18:49] LABS: AMORPHOUS SEDIMENT,URINE TRACE /HPF; APPEARANCE,URINE CLOUDY; BILIRUBIN,URINE NEGATIVE (NEGATIVE); COLOR,URINE YELLOW; GLUCOSE, URINE NEGATIVE (NEGATIVE); KETONES,URINE TRACE mg/dL (NEGATIVE); PROTEIN,URINE NEGATIVE (NEGATIVE); URINE SPECIFIC GRAVITY 1.019; UROBILINOGEN,URINE NEGATIVE mg/dL (<2.0)
[2020-01-03 18:51] LABS: BACTERIA (WET MOUNT) 4+ BACTERIA SEEN; EPITHELIALS (WET MOUNT) 3+ EPITHELIALS SEEN; T.VAGINALIS (WET MOUNT) NO TRICHOMONAS SEEN; WBCS (WET MOUNT) 1+ WBCS SEEN; YEAST (WET MOUNT) NO YEAST SEEN
[2020-01-03] MEDS ORDERED: METRONIDAZOLE 500 MG TABLET PO ONE (19:06)
[2020-01-03 19:22] VITALS: BP 157/89
[2020-01-03 20:22] LABS: CHLAM PCR DETECTED (NOT DETECT)
== END 2020-01-03 19:21 | disposition home or self-care (01) ==
LOC: ER 15:00
DX: N76.0 Acute vaginitis (principal); B96.89 Other specified bacterial agents as the cause of diseases classified elsewhere; Z20.2 Contact with and (suspected) exposure to infections with a predominantly sexual mode of transmission; Z88.8 Allergy status to other drugs, medicaments and biological substances; Z88.6 Allergy status to analgesic agent; Z88.5 Allergy status to narcotic agent
CPT/HCPCS: 36415; 80053; 81001; 81025; 83690; 85025; 87210; 87491; 87591; 99283

== ENCOUNTER 2020-01-11 14:23 | Emergency (ER) | payer SELFPAY ==
--- NOTE | 2020-01-11 14:45 | ER Document Report ---
ED Medical Screen (RME) - General Chief Complaint: Medication Refill Stated Complaint: MEDICATION REFILL Time Seen by Provider: 01/11/20 14:35 Mode of Arrival: Ambulatory Information source: Patient Notes: 39-year-old female presents to ED for treatment for STDs. She was seen here on 01/03/2020 and had positive gonorrhea chlamydia and bacterial vaginosis.. She states she has not been able to get treated for days since she was tested. She states she does not have the money to buy the Flagyl she needs for the bacterial vaginosis. She states she has nobody else in the state to help get the medication she needs. She states she is doing to have the symptoms because she has not been treated as yet. Constitutional: Negative for fever. HENT: Negative for sore throat. Eyes: Negative for visual changes. Cardiovascular: Negative for chest pain. Respiratory: Negative for shortness of breath. Gastrointestinal: Negative for abdominal pain, vomiting or diarrhea. Genitourinary: Continued vaginal drainage and pelvic pain has not taken medications for STD as yet Musculoskeletal: Negative for back pain. Skin: Negative for rash. Neurological: Negative for headaches, weakness or numbness. 10 point ROS negative except as marked above and in HPI. VITAL SIGNS: Within normal limits. GENERAL: No acute distress, non-toxic appearance. HEAD: Normal with no signs of head trauma. EYES: PERRLA, EOMI, conjunctiva normal, no discharge. EARS: Hearing grossly intact. NOSE: Normal. THROAT: Oropharynx is normal. NECK: Normal range of motion, no tenderness, supple, no lymphadenopathy, No adenopathy, no JVD. CHEST: Clear breath sounds bilaterally. No wheezes, rales, or rhonchi. CARDIAC: Regular rate and rhythm. S1 and S2, without murmurs, gallops, or rubs. VASCULAR: No Edema. Peripheral pulses normal and equal in all extremities. ABDOMEN: Normal and soft with no tenderness, no masses or pulsatile masses. GASTROINTESTINAL: Bowel sounds normal GENITOURINARY: Vaginal drainage pelvic tenderness LYMPATHTIC: No lymphadenopathy noted. MUSCULOSKELETAL: Good range of motion of all major joints. Extremities without clubbing, cyanosis or edema. NEUROLOGICAL: Alert and oriented x 3. No focal sensory or strength deficits. Speech normal. Follows commands appropriately. PSYCHIATRIC: Normal Affect, judgement and mood. SKIN: Normal appearance with no rashes or lesions. TRAVEL OUTSIDE OF THE [place] IN LAST 30 DAYS: No - HPI Onset: Last week Onset/Duration: Persistent Quality of pain: Achy, Cramping Severity: Mild Pain Level: 1 Associated Symptoms: Other Exacerbated by: Denies Relieved by: Denies - Vaginal discharge recently seen for STDs Similar symptoms previously: Yes Recently seen / treated by doctor: Yes - Related Data Smoking: Cigarettes Frequency of alcohol use: Social Drug Abuse: None Allergies/Adverse Reactions: acetaminophen [From Vicodin] Allergy (Mild, Verified 07/29/18 15:36) hydrocodone [From Vicodin] Allergy (Mild, Verified 07/29/18 15:36) Past Medical History Renal/ Medical History: Denies: Hx Peritoneal Dialysis Past Surgical History: Reports: Hx Abdominal Surgery - hernia, Hx Cholecystectomy Doctor's Discharge - Discharge Clinical Impression: Gonorrhea, Chlamydia, Bacterial vaginosis Condition: Stable Disposition: HOME, SELF-CARE Additional Instructions: VAGINITIS: Your exam shows that you have vaginitis, a vaginal infection. The infection can be caused by a many different organisms, including trichomonas or Gardnerella. The usual symptoms are vaginal irritation and discharge. The treatment is usually antibiotics such as Flagyl. Laboratory tests can determine which germ is responsible. Use the medication as prescribed. Because this infection can be transmitted sexually, your sexual partner may need to be checked and treated also. If your physician has not discussed this with you, please check before resuming sexual relations. If a culture shows gonorrhea or chlamydia, the infection must be reported to the health department. Call the doctor if you develop pelvic pain, fever, or problems with urination, or if you don't improve as expected. VAGINOSIS, BACTERIAL: Your exam shows you have bacterial vaginosis. This condition is due to an overgrowth of bacteria in the vagina. Symptoms may include vaginal itching or pain, a smelly discharge, and sometimes burning with urination. Normally this is not transmitted by sexual contact. Vaginosis can be treated with oral or topical antibiotics. Metronidazole (Flagyl) pills are usually effective. Topical vaginal creams include Cleocin and Metro-Gel. You should avoid sexual contact until your symptoms are all better. Call the doctor if you develop pelvic pain, fever, or problems with urination, or if you don't improve as expected. Chlamydia You have a chlamydia infection. Chlamydia is a germ that grows inside the cells of the mucous membranes. It often infects the eyes, urethra, and fallopian tubes. It can cause chronic pain and scar tissue if untreated. Antibiotics are used to treat chlamydia. It's important to take all the medicine even if there are no symptoms. Use condoms to prevent spread of the infection. Because this infection can spread by sexual contact, it's important that your sexual partner be checked before resuming sexual relations. A positive test for chlamydia has to be reported to the health department. Call the doctor or return at once if you develop increasing fever, rash, severe pelvic pain, vaginal bleeding (other than your period), or problems with your bladder or bowels. Gonorrhea You have been diagnosed with gonorrhea. In men, this germ infects the urethra (and sometimes the throat). Men usually have drainage from the penis and pain with urination. In women, the germ infects the vagina and fallopian tubes. There may be discharge and pelvic pain. Some women have no symptoms at all. The infection can do permanent damage to the tubes and ovaries. It should be taken very seriously. Treatment is antibiotics. It's important that you receive all recommended medication. Use condoms to prevent spread of the infection. Because this infection is spread sexually, your sexual partner must be checked before resuming sexual relations. If a culture shows gonorrhea germs, it must be reported to the health department. Call the doctor or return at once if you develop increasing fever, rash, joint swelling, severe pelvic pain, vaginal bleeding (other than your period), or problems with your bladder or bowels. ANTIBIOTIC THERAPY: You have been given an antibiotic prescription. It's important that you take all the medication, unless instructed otherwise by your physician. Failure to complete the entire course can result in relapse of your condition. Common side effects of antibiotics include nausea, intestinal cramping, or diarrhea. Women may develop vaginal yeast infections, and babies can get yeast (thrush) in the mouth following the use of antibiotics. Contact your physician if you develop significant side effects from this medication. Allergy to this antibiotic can result in hives, wheezing, faintness, or itching. If symptoms of allergy occur, stop the medication and call the doctor. CEPHALOSPORINS: An antibiotic of the cephalosporin class has been prescribed. This type of antibiotic covers a wide variety of infections, including those of the skin, lungs, middle ear, and urinary tract. This antibiotic is somewhat similar to the penicillin family. In rare cases, a person who is allergic to penicillin will also be allergic to this medication. If you have had a severe allergic reaction to penicillin, and have not taken this antibiotic since that time, notify your doctor. Antibiotics which cover many germs ("broad spectrum" antibiotics) are more likely to cause diarrhea or "yeast" infections. Women prone to vaginal yeast problems may suffer an attack after taking this antibiotic. In infants, oral thrush (white spots "stuck" on the cheek) or yeast diaper rash may result. See your doctor if these problems occur. Call the doctor at once if you develop hives, itching, shortness of breath, or lightheadedness. DOXYCYCLINE: Doxycycline (Vibramycin, Doryx) is an antibiotic of the tetracycline family. This type of drug is useful for infections of the respiratory tract and genital tract, and is sometimes used for intestinal infections. Unlike most tetracyclines, doxycycline can be taken with food. It is longer acting, and (usually) less prone to side effects than regular tetracycline. Tetracycline antibiotics can stain immature teeth and SHOULD NOT BE TAKEN BY CHILDREN, NURSING MOTHERS, OR WOMEN. Tetracyclines can make you more prone to sunburn. Abdominal cramping, nausea, and diarrhea are occasional side effects. Women may experience vaginal yeast infections. Call the doctor at once if you develop hives, itching, shortness of breath, or lightheadedness. AZITHROMYCIN: Azithromycin (Zithromax) is a broad spectrum antibiotic in the same class as erythromycin. It can treat a variety of bacterial infections, but is most frequently used for respiratory infections. Azithromycin is extremely long-lasting. It accumulates in body tissues and continues to kill bacteria for many days. In order to improve absorption, Azithromycin should be taken at least one hour before or two hours after a meal. It does not have the same strong tendency to upset the stomach as erythromycin and is usually very well tolerated. Patients who have had a rash or other true allergic reactions to erythromycin should not take this medication. Call if you develop gastrointestinal distress, severe diarrhea, rash, hives, itching, or shortness of breath. METRONIDAZOLE: Metronidazole (Flagyl) has been prescribed. This medication is used to kill a type of bacteria called anaerobes, and protozoan parasites such as trichomonas and Giardia. Flagyl often causes a metallic taste in the mouth and mild nausea. Do not use alcohol in any form with Flagyl (including alcohol in medication elixirs). Flagyl interacts with alcohol to cause flushing, palpitations, headache, stomach cramps, and vomiting. Do not use Flagyl if you are taking Antabuse (disulfiram). Call the doctor at once if you develop rash, shortness of breath, itching, or lightheadedness. FOLLOW-UP CARE: If you have been referred to a physician for follow-up care, call the physicians office for an appointment as you were instructed or within the next two days. If you experience worsening or a significant change in your symptoms, notify the physician immediately or return to the Emergency Department at any time for re-evaluation. Prescriptions: Doxycycline Monohydrate 100 mg PO BID #20 capsule Metronidazole [Flagyl] 500 mg PO BID #14 tablet Forms: Elevated Blood Pressure, Smoking Cessation Education Referrals: [facility] [Provider Group] - Follow up as needed [facility] [Provider Group] - Follow up as needed
[2020-01-11] MEDS ORDERED: LIDOCAINE 1% INJ-PF (10 MG/ML) 30 ML SDV INJ ONE (14:52)
[2020-01-11] MEDS ORDERED: AZITHROMYCIN 250 MG TABLET PO ONE (14:52)
[2020-01-11] MEDS ORDERED: CEFTRIAXONE INJ 250 MG VIAL IM ONE (14:52)
--- NOTE | 2020-01-11 15:02 | ER Document Report ---
ED General - General Chief Complaint: Medication Refill Stated Complaint: MEDICATION REFILL Time Seen by Provider: 01/11/20 14:35 Primary Care Provider: [facility] [Provider Group] - Follow up as needed [facility] [Provider Group] - Follow up as needed Mode of Arrival: Ambulatory Information source: Patient Notes: 39-year-old female presents to ED for treatment for STDs. She was seen here on 01/03/2020 and had positive gonorrhea chlamydia and bacterial vaginosis.. She states she has not been able to get treated for days since she was tested. She states she does not have the money to buy the Flagyl she needs for the bacterial vaginosis. She states she has nobody else in the state to help get the medication she needs. She states she is doing to have the symptoms because she has not been treated as yet. Constitutional: Negative for fever. HENT: Negative for sore throat. Eyes: Negative for visual changes. Cardiovascular: Negative for chest pain. Respiratory: Negative for shortness of breath. Gastrointestinal: Negative for abdominal pain, vomiting or diarrhea. Genitourinary: Continued vaginal drainage and pelvic pain has not taken medications for STD as yet Musculoskeletal: Negative for back pain. Skin: Negative for rash. Neurological: Negative for headaches, weakness or numbness. 10 point ROS negative except as marked above and in HPI. VITAL SIGNS: Within normal limits. GENERAL: No acute distress, non-toxic appearance. HEAD: Normal with no signs of head trauma. EYES: PERRLA, EOMI, conjunctiva normal, no discharge. EARS: Hearing grossly intact. NOSE: Normal. THROAT: Oropharynx is normal. NECK: Normal range of motion, no tenderness, supple, no lymphadenopathy, No adenopathy, no JVD. CHEST: Clear breath sounds bilaterally. No wheezes, rales, or rhonchi. CARDIAC: Regular rate and rhythm. S1 and S2, without murmurs, gallops, or rubs. VASCULAR: No Edema. Peripheral pulses normal and equal in all extremities. ABDOMEN: Normal and soft with no tenderness, no masses or pulsatile masses. GASTROINTESTINAL: Bowel sounds normal GENITOURINARY: Vaginal drainage pelvic tenderness LYMPATHTIC: No lymphadenopathy noted. MUSCULOSKELETAL: Good range of motion of all major joints. Extremities without clubbing, cyanosis or edema. NEUROLOGICAL: Alert and oriented x 3. No focal sensory or strength deficits. Speech normal. Follows commands appropriately. PSYCHIATRIC: Normal Affect, judgement and mood. SKIN: Normal appearance with no rashes or lesions. TRAVEL OUTSIDE OF THE [place] IN LAST 30 DAYS: No - HPI Onset: Last week Onset/Duration: Persistent Quality of pain: Achy, Cramping Severity: Mild Pain Level: 0 Associated symptoms: Other - Vaginal discharge pelvic pain Exacerbated by: Denies Relieved by: Denies Similar symptoms previously: Yes Recently seen / treated by doctor: Yes - Related Data Allergies/Adverse Reactions: No Known Allergies Allergy (Verified 01/11/20 14:59) Past Medical History - General Information source: Patient - Social History Smoking Status: Current Every Day Smoker Cigarette use (# per day): Yes - 1/2 pack/day Smoking Education Provided: Yes Frequency of alcohol use: Social Drug Abuse: None Lives with: Homeless Family History: Reviewed & Not Pertinent Patient has suicidal ideation: No Patient has homicidal ideation: No - Past Medical History Cardiac Medical History: Reports: None Pulmonary Medical History: Reports: None EENT Medical History: Reports: None Neurological Medical History: Reports: None Endocrine Medical History: Reports: None Renal/ Medical History: Reports: None Malignancy Medical History: Reports: None GI Medical History: Reports: None Musculoskeletal Medical History: Reports None Skin Medical History: Reports None Psychiatric Medical History: Reports: None Traumatic Medical History: Reports: None Past Surgical History: Reports: Hx Abdominal Surgery - hernia, Hx Cholecystectomy Physical Exam - Vital signs Vitals: Temp 98.3 F 01/11/20 15:06 Course - Re-evaluation Re-evalutation: 01/11/20 15:01 Patient states she came to the emergency room to get the gonorrhea and chlamydia medications and she could not her medications for her bacterial vaginosis. I have ordered her the Rocephin and azithromycin have also given her a prescription for Flagyl and doxycycline. I have also done a discharge consult with Marquez Rausch to get help with the medications so that she can fill the medications. - Vital Signs Vital signs: Temp Pulse Resp BP Pulse Ox 98.3 F 01/11/20 15:06 Discharge - Discharge Clinical Impression: Gonorrhea, Chlamydia, Bacterial vaginosis Condition: Stable Disposition: HOME, SELF-CARE Additional Instructions: VAGINITIS: Your exam shows that you have vaginitis, a vaginal infection. The infection can be caused by a many different organisms, including trichomonas or Gardnerella. The usual symptoms are vaginal irritation and discharge. The treatment is usually antibiotics such as Flagyl. Laboratory tests can determine which germ is responsible. Use the medication as prescribed. Because this infection can be transmitted sexually, your sexual partner may need to be checked and treated also. If your physician has not discussed this with you, please check before resuming sexual relations. If a culture shows gonorrhea or chlamydia, the infection must be reported to the health department. Call the doctor if you develop pelvic pain, fever, or problems with urination, or if you don't improve as expected. VAGINOSIS, BACTERIAL: Your exam shows you have bacterial vaginosis. This condition is due to an overgrowth of bacteria in the vagina. Symptoms may include vaginal itching or pain, a smelly discharge, and sometimes burning with urination. Normally this is not transmitted by sexual contact. Vaginosis can be treated with oral or topical antibiotics. Metronidazole (Flagyl) pills are usually effective. Topical vaginal creams include Cleocin and Metro-Gel. You should avoid sexual contact until your symptoms are all better. Call the doctor if you develop pelvic pain, fever, or problems with urination, or if you don't improve as expected. Chlamydia You have a chlamydia infection. Chlamydia is a germ that grows inside the cells of the mucous membranes. It often infects the eyes, urethra, and fallopian tubes. It can cause chronic pain and scar tissue if untreated. Antibiotics are used to treat chlamydia. It's important to take all the medicine even if there are no symptoms. Use condoms to prevent spread of the infection. Because this infection can spread by sexual contact, it's important that your sexual partner be checked before resuming sexual relations. A positive test for chlamydia has to be reported to the health department. Call the doctor or return at once if you develop increasing fever, rash, severe pelvic pain, vaginal bleeding (other than your period), or problems with your bladder or bowels. Gonorrhea You have been diagnosed with gonorrhea. In men, this germ infects the urethra (and sometimes the throat). Men usually have drainage from the penis and pain with urination. In women, the germ infects the vagina and fallopian tubes. There may be discharge and pelvic pain. Some women have no symptoms at all. The infection can do permanent damage to the tubes and ovaries. It should be taken very seriously. Treatment is antibiotics. It's important that you receive all recommended medication. Use condoms to prevent spread of the infection. Because this infection is spread sexually, your sexual partner must be checked before resuming sexual relations. If a culture shows gonorrhea germs, it must be reported to the health department. Call the doctor or return at once if you develop increasing fever, rash, joint swelling, severe pelvic pain, vaginal bleeding (other than your period), or problems with your bladder or bowels. ANTIBIOTIC THERAPY: You have been given an antibiotic prescription. It's important that you take all the medication, unless instructed otherwise by your physician. Failure to complete the entire course can result in relapse of your condition. Common side effects of antibiotics include nausea, intestinal cramping, or diarrhea. Women may develop vaginal yeast infections, and babies can get yeast (thrush) in the mouth following the use of antibiotics. Contact your physician if you develop significant side effects from this medication. Allergy to this antibiotic can result in hives, wheezing, faintness, or itching. If symptoms of allergy occur, stop the medication and call the doctor. CEPHALOSPORINS: An antibiotic of the cephalosporin class has been prescribed. This type of antibiotic covers a wide variety of infections, including those of the skin, lungs, middle ear, and urinary tract. This antibiotic is somewhat similar to the penicillin family. In rare cases, a person who is allergic to penicillin will also be allergic to this medication. If you have had a severe allergic reaction to penicillin, and have not taken this antibiotic since that time, notify your doctor. Antibiotics which cover many germs ("broad spectrum" antibiotics) are more likely to cause diarrhea or "yeast" infections. Women prone to vaginal yeast problems may suffer an attack after taking this antibiotic. In infants, oral thrush (white spots "stuck" on the cheek) or yeast diaper rash may result. See your doctor if these problems occur. Call the doctor at once if you develop hives, itching, shortness of breath, or lightheadedness. DOXYCYCLINE: Doxycycline (Vibramycin, Doryx) is an antibiotic of the tetracycline family. This type of drug is useful for infections of the respiratory tract and genital tract, and is sometimes used for intestinal infections. Unlike most tetracyclines, doxycycline can be taken with food. It is longer acting, and (usually) less prone to side effects than regular tetracyc line. Tetracycline antibiotics can stain immature teeth and SHOULD NOT BE TAKEN BY CHILDREN, NURSING MOTHERS, OR WOMEN. Tetracyclines can make you more prone to sunburn. Abdominal cramping, nausea, and diarrhea are occasional side effects. Women may experience vaginal yeast infections. Call the doctor at once if you develop hives, itching, shortness of breath, or lightheadedness. AZITHROMYCIN: Azithromycin (Zithromax) is a broad spectrum antibiotic in the same class as erythromycin. It can treat a variety of bacterial infections, but is most frequently used for respiratory infections. Azithromycin is extremely long-lasting. It accumulates in body tissues and continues to kill bacteria for many days. In order to improve absorption, Azithromycin should be taken at least one hour before or two hours after a meal. It does not have the same strong tendency to upset the stomach as erythromycin and is usually very well tolerated. Patients who have had a rash or other true allergic reactions to erythromycin should not take this medication. Call if you develop gastrointestinal distress, severe diarrhea, rash, hives, itching, or shortness o f breath. METRONIDAZOLE: Metronidazole (Flagyl) has been prescribed. This medication is used to kill a type of bacteria called anaerobes, and protozoan parasites such as trichomonas and Giardia. Flagyl often causes a metallic taste in the mouth and mild nausea. Do not use alcohol in any form with Flagyl (including alcohol in medication elixirs). Flagyl interacts with alcohol to cause flushing, palpitations, headache, stomach cramps, and vomiting. Do not use Flagyl if you are taking Antabuse (disulfiram). Call the doctor at once if you develop rash, shortness of breath, itching, or lightheadedness. FOLLOW-UP CARE: If you have been referred to a physician for follow-up care, call the physicians office for an appointment as you were instructed or within the next two days. If you experience worsening or a significant change in your symptoms, notify the physician immediately or return to the Emergency Department at any time for re-evaluation. Prescriptions: Doxycycline Monohydrate 100 mg PO BID #20 capsule Metronidazole [Flagyl] 500 mg PO BID #14 tablet Forms: Elevated Blood Pressure, Smoking Cessation Education Referrals: [facility] [Provider Group] - Follow up as needed [facility] [Provider Group] - Follow up as needed
== END 2020-01-11 15:25 | disposition home or self-care (01) ==
LOC: ER 14:23
DX: N76.0 Acute vaginitis (principal); B96.89 Other specified bacterial agents as the cause of diseases classified elsewhere; A54.02 Gonococcal vulvovaginitis, unspecified; A56.02 Chlamydial vulvovaginitis; F17.210 Nicotine dependence, cigarettes, uncomplicated
CPT/HCPCS: 99284; 96372; J3490; J0696

== ENCOUNTER 2020-03-25 16:03 | Emergency (ER) | payer SELFPAY ==
[2020-03-25] MEDS ORDERED: CEFTRIAXONE INJ 1000 MG VIAL IM ONE (18:16)
[2020-03-25] MEDS ORDERED: METRONIDAZOLE 500 MG TABLET PO ONE (18:16)
[2020-03-25] MEDS ORDERED: LIDOCAINE 1% INJ (10 MG/ML) 10 ML MDV INJ ONE (18:16)
[2020-03-25] MEDS ORDERED: SULFAMETHOXAZOLE/TRIMETHOPRIM 800-160 MG TABLET PO ONE (18:16)
--- NOTE | 2020-03-25 18:27 | ER Document Report ---
HPI - HPI Notes: CHIEF COMPLAINT: Multiple complaints HPI: 39-year-old female who is homeless presenting with multiple complaints. Patient primarily complaining of swelling to the left face and scalp over the last 24 to 48 hours. States she had a small hair bump there and it has worsened. No fever. Complains of pain to the area. Patient also wishes to be retested for STDs. Patient states she was diagnosed with gonorrhea and chlamydia in December 2019 was given Rocephin and Zithromax at that time occasionally has some pelvic discomfort not today but wanted to be rechecked. She states that she did not fill the Flagyl which she had been prescribed for vaginitis. Patient denies other complaints at this time ROS: See HPI - all other systems were reviewed and are otherwise negative Constitutional: no fever Eyes: no drainage, no blurred vision ENT: no runny nose, no sore throat Cardiovascular: no chest pain Resp: no SOB, no cough GI: no vomiting, no diarrhea, no abdominal pain : no dysuria Integumentary: + rash Allergy: no hives Musculoskeletal: no extremity pain or swelling Neurological: no numbness/tingling, no weakness MEDICATIONS: I agree with the patient medications as charted by the RN. ALLERGIES: I agree with the allergies as charted by the RN. PAST MEDICAL HISTORY/PAST SURGICAL HISTORY: Reviewed and agree as charted by RN. SOCIAL HISTORY: Reviewed and agree as charted by RN. FAMILY HISTORY: No significant familial comorbid conditions directly related to patient complaint EXAM: Reviewed vital signs as charted by RN. CONSTITUTIONAL: Alert and oriented and responds appropriately to questions. Well-appearing; well-nourished HEAD: Normocephalic; atraumatic EYES: PERRL; Conjunctivae clear, sclerae non-icteric ENT: normal nose; no rhinorrhea; moist mucous membranes; pharynx without lesions noted, no uvula edema or deviation, no tonsillar hypertrophy, phonation normal. There is erythema just above the left ear with STS noted into the pre-auricular region. NECK: Supple without meningismus; non-tender; no cervical lymphadenopathy, no masses CARD: RRR; no murmurs, no clicks, no rubs, no gallops; symmetric distal pulses RESP: Normal chest excursion without splinting or tachypnea; breath sounds clear and equal bilaterally; no wheezes, no rhonchi, no rales, pulse oximetry ABD/GI: Normal bowel sounds; non-distended; soft, non-tender, no rebound, no guarding; no palpable organomegaly or masses. BACK: The back appears normal and is non-tender to palpation, there is no CVA tenderness EXT: Normal ROM in all joints; non-tender to palpation; no cyanosis, no effusions, no edema SKIN: Normal color for age and race; warm; dry; good turgor NEURO: Moves all extremities equally; Motor and sensory function intact PSYCH: The patient's mood and manner are appropriate. Grooming and personal hygiene are appropriate. MDM: 39-year-old female presenting for cellulitis of the left scalp and face. We will give her Rocephin here. We will place her on Bactrim to cover MRSA. Patient also wishes to be retested for gonorrhea chlamydia she has not having symptoms at the moment. She is not a reliable patient or historian. Will obtain testing to ensure patient does not have an STD. Patient on review of her records was given a prescription for Flagyl for vaginitis in December she still complains of some symptoms we will rewrite the prescription for her - REPRODUCTIVE Reproductive: DENIES: : Past Medical History - Social History Smoking Status: Unknown if Ever Smoked Family History: Reviewed & Not Pertinent Renal/ Medical History: Denies: Hx Peritoneal Dialysis Past Surgical History: Reports: Hx Abdominal Surgery - hernia, Hx Cholecystectomy Vertical Provider Document - INFECTION CONTROL TRAVEL OUTSIDE OF THE [place] IN LAST 30 DAYS: No Course - Vital Signs Vital signs: Temp Pulse Resp BP Pulse Ox 98.8 F 86 16 134/66 H 100 03/25/20 16:19 03/25/20 16:19 03/25/20 16:19 03/25/20 16:19 03/25/20 16:19 - Laboratory Results Critical Laboratory Results Reviewed: No Critical Results - Radiology Results Critical Radiology Results Reviewed: No Critical Results Discharge - Discharge Clinical Impression: Facial cellulitis, Concern about STD in female without diagnosis Condition: Stable Disposition: HOME, SELF-CARE Additional Instructions: Warm heat to the left face to help with swelling and discomfort. Take the antibiotics as prescribed. Take naproxen for pain and swelling. No sexual intercourse for 10 days. Your STD tests are pending currently you will be notified by the hospital of your results if positive. Prescriptions: Sulfamethoxazole/Trimethoprim [Bactrim Ds Tablet] 2 tab PO BID #28 tablet Metronidazole [Flagyl 500 mg Tablet] 500 mg PO BID #14 tablet Naproxen 500 mg PO BID PRN #14 tablet PRN Reason: Referrals: BRODERICK GILMAN MD [ACTIVE STAFF] - Follow up as needed
[2020-03-25 19:23] LABS: APPEARANCE,URINE CLOUDY; BILIRUBIN,URINE NEGATIVE (NEGATIVE); COLOR,URINE YELLOW; GLUCOSE, URINE NEGATIVE (NEGATIVE); KETONES,URINE NEGATIVE (NEGATIVE); LEUKOCYTE ESTERASE,URINE SMALL (NEGATIVE); NITRITE,URINE NEGATIVE (NEGATIVE); PROTEIN,URINE 30 mg/dL (NEGATIVE); URINE SPECIFIC GRAVITY 1.026; UROBILINOGEN,URINE NEGATIVE mg/dL (<2.0)
[2020-03-25 19:27] VITALS: BP 134/60
[2020-03-25 20:44] LABS: CHLAM PCR NOT DETECTED (NOT DETECT)
== END 2020-03-25 19:26 | disposition home or self-care (01) ==
LOC: ER 16:03
DX: L03.211 Cellulitis of face (principal); L03.811 Cellulitis of head [any part, except face]; Z20.2 Contact with and (suspected) exposure to infections with a predominantly sexual mode of transmission
CPT/HCPCS: 99284; 96372; 87086; 81001; 87491; 87591; J0696

== ENCOUNTER 2020-03-27 14:31 | Emergency (ER) | payer SELFPAY ==
[2020-03-27 14:39] VITALS: BP 140/96
[2020-03-27] MEDS ORDERED: CLINDAMYCIN 900 MG/D5W RTU 900 MG/50 ML RTUPB IV ONE (15:31)
--- NOTE | 2020-03-27 15:35 | ER Document Report ---
ED Medical Screen (RME) - General Chief Complaint: Facial Swelling Stated Complaint: FACIAL SWELLING,TOOTH PAIN TRAVEL OUTSIDE OF THE [place] IN LAST 30 DAYS: No - HPI Notes: 03/27/20 15:33 Rapid Medical Exam HPI: This is a 39-year-old female that presents with facial cellulitis on the left side for the past 4 days. Patient was seen in the ED 2 days ago and was given a shot of Rocephin and discharged with Bactrim. Patient admits to not filling the Bactrim. Patient says this infection has since spread to her left orbit and down toward the lateral portion of her neck. She reports feeling very dizzy if she leans her head to the side or leans her head down. She feels fatigued but denies any objective fevers. She does have a history of MRSA. Denies any pain with extraocular movements. Denies any vision loss or color vision changes. She says she was able to drain some purulent material from the source of the infection which is just superior/posterior to her ear. Physical Exam: GENERAL: Well-appearing, well-nourished and in no acute distress. HEAD: Atraumatic, normocephalic. ENT: Moist mucous membranes. RESP: Respirations even and unlabored CV- Regular rate. NEURO: No focal neurological deficits. Moves all extremities spontaneously and on command. My involvement in this patients care was limited to a rapid initial assessment. A comprehensive ED assessment and evaluation of the patient, analysis of test results, treatment, and completion of the medical decision making process will be performed by other ER providers. - Related Data Allergies/Adverse Reactions: No Known Allergies Allergy (Verified 01/11/20 14:59) Past Medical History - Social History Frequency of alcohol use: Occasional Renal/ Medical History: Denies: Hx Peritoneal Dialysis Past Surgical History: Reports: Hx Abdominal Surgery - hernia, Hx Cholecystectomy Physical Exam - Vital signs Vitals: Temp Pulse Resp BP Pulse Ox 97.5 F 110 H 16 140/96 H 98 03/27/20 14:38 03/27/20 14:38 03/27/20 14:38 03/27/20 14:38 03/27/20 14:38 Course - Vital Signs Vital signs: Temp Pulse Resp BP Pulse Ox 97.5 F 110 H 16 140/96 H 98 03/27/20 14:38 03/27/20 14:38 03/27/20 14:38 03/27/20 14:38 03/27/20 14:38
[2020-03-27 15:59] LABS: ABSOLUTE BASOPHILS # (AUTO) 0.1 10^3/uL (0.0-0.2); ABSOLUTE EOSINOPHILS # (AUTO) 0.4 10^3/uL (0.0-0.6); ABSOLUTE MONOCYTES (AUTO) 0.9 10^3/uL (0.1-1.4); ABSOLUTE NEUT (AUTO) 8.8 10^3/uL (1.7-8.2); BASOPHILS % (AUTO) 0.7 % (0-2); EOSINOPHILS % (AUTO) 2.6 % (0-6); HEMATOCRIT 34.1 % (36.0-47.0); HEMOGLOBIN 11.6 g/dL (12.0-15.5); LYMPHOCYTES % (AUTO) 32.8 % (13-45); MEAN CORPUSCULAR HEMOGLOBIN 31.3 pg (27.0-33.4); MEAN CORPUSCULAR HGB CONC 34.2 g/dL (32.0-36.0); MEAN CORPUSCULAR VOLUME 92 fl (80-97); MONOCYTES % (AUTO) 5.7 % (3-13); PLATELET COUNT 256 10^3/uL (150-450); RED BLOOD COUNT 3.72 10^6/uL (3.72-5.28); RED CELL DISTRIBUTION WIDTH 14.4 % (11.5-14.0); SEGMENTED NEUTROPHILS % (AUTO) 58.2 % (42-78); TOTAL CELLS COUNTED % (AUTO) 100 %; WHITE BLOOD COUNT 15.1 10^3/uL (4.0-10.5)
[2020-03-27 16:05] LABS: APPEARANCE,URINE SLIGHTLY-CLOUDY; BILIRUBIN,URINE NEGATIVE (NEGATIVE); COLOR,URINE YELLOW; GLUCOSE, URINE NEGATIVE (NEGATIVE); KETONES,URINE NEGATIVE (NEGATIVE); LEUKOCYTE ESTERASE,URINE TRACE (NEGATIVE); NITRITE,URINE NEGATIVE (NEGATIVE); PROTEIN,URINE 30 mg/dL (NEGATIVE); URINE SPECIFIC GRAVITY 1.026
[2020-03-27 16:15] LABS: ALBUMIN 3.6 g/dL (3.5-5.0); ALKALINE PHOSPHATASE 75 U/L (38-126); ASPARTATE AMINO TRANSFERASE 19 U/L (14-36); BILIRUBIN,DIRECT 0.1 mg/dL (0.0-0.4); BILIRUBIN,TOTAL 0.4 mg/dL (0.2-1.3); BLOOD UREA NITROGEN 16 mg/dL (7-20); CALCIUM 8.7 mg/dL (8.4-10.2); CARBON DIOXIDE 30 mmol/L (22-30); CHLORIDE 105 mmol/L (98-107); GLUCOSE 88 mg/dL (75-110); POTASSIUM 3.2 mmol/L (3.6-5.0); TOTAL PROTEIN 6.7 g/dL (6.3-8.2)
[2020-03-27 16:22] LABS: ANION GAP 2 (5-19)
--- NOTE | 2020-03-27 17:34 | RADIOLOGY REPORT (SQ) ---
EXAM DESCRIPTION: CT FACIAL AREA WITH IMAGES COMPLETED DATE/TIME: 03/27/2020 5:17 pm REASON FOR STUDY: left temporal infection extending to left orbit COMPARISON: None. TECHNIQUE: Post contrast images through the facial bones and orbits windowed for bone and soft tissu e. Additional coronal and sagittal reconstructed images reviewed. All images stored on PACS. All CT scanners at this facility use dose modulation, iterative reconstruction, and/or weight based d osing when appropriate to reduce radiation dose to as low as reasonably achievable (ALARA). [facility]: Dose Right [facility]: CareDose [facility]: Dose Right [facility]: Teradose 4D [facility]: [employer] CONTRAST TYPE AND DOSE: contrast/concentration: Isovue 350.00 mmol/ml; Total Contrast Delivered: 70. 2 ml; Total Saline Delivered: 20.0 ml RENAL FUNCTION: BUN 16 creatinine 0.76 RADIATION DOSE: CT Rad equipment meets quality standard of care and radiation dose reduction techniq ues were employed. CTDIvol: 30.4 mGy. DLP: 595 mGy-cm. . LIMITATIONS: None. FINDINGS: FACIAL BONES: No fracture or bone lesion. ORBITS: Intact. No fracture. Symmetric intact globes and retroorbital soft tissues. PARANASAL SINUSES: Clear. No significant mucosal thickening, mass or fluid. No nasal polyps. Maxilla ry sinus outlets are patent. SOFT TISSUES: There is marked subcutaneous soft tissue swelling in the left temporal region. Cannot exclude a small amount of subcutaneous fluid. Mild subcutaneous inflammatory changes extend inferior ly on the left inferior to the left orbit. There is mild adenopathy on the left. INFERIOR BRAIN: Limited view. No acute findings. OTHER: No other significant finding. IMPRESSION: Inflammatory changes on the left as described. Etiology uncertain. Cannot exclude a sm all subcutaneous abscess in the left temporal region. See images 66 to 70. TECHNICAL DOCUMENTATION: JOB ID: [id number] Quality ID # [id number]: Final reports with documentation of one or more dose reduction techniques (e.g., Au tomated exposure control, adjustment of the mA and/or kV according to patient size, use of iterative reconstruction technique) 2010 [employer]- All Rights Reserved Reading location - IP/workstation name: [email or web address]
== END 2020-03-27 19:24 | disposition left against medical advice (07) ==
LOC: ER 14:31
DX: R22.0 Localized swelling, mass and lump, head (principal); K08.89 Other specified disorders of teeth and supporting structures; L03.211 Cellulitis of face; M54.2 Cervicalgia; R42 Dizziness and giddiness; R53.83 Other fatigue; Z86.14 Personal history of Methicillin resistant Staphylococcus aureus infection; Z53.20 Procedure and treatment not carried out because of patient's decision for unspecified reasons
CPT/HCPCS: 99281; 96365; 36415; 84703; 85025; 80053; 81001; 70487; J3490